=== PATIENT | female | born 1960 | race Caucasian/White ===

== ENCOUNTER 2024-07-11 20:51 | Emergency (ER) | payer MEDICARE ==
[~2024-07-11] VITALS: Ht 162.6 cm; Wt 76.0 kg
[~2024-07-11 20:51] MED LIST: ALLOPURINOL100 MG PO; ALLOPURINOL300 MG PO; ALPRAZOLAM0.5 MG PO; ASPIRIN LOW DOS81 M2 PO; ASPIRIN LOW81 M1 PO; ASPIRIN81 MG PO; BACTRIM DS1 TAB PO; CALCIUM600 M1 PO; CELEBREX200 MG PO; CIPROFLOXACN500 MG PO; CITALOPRAM20 MG PO; CLARITIN10 M1 PO; FLUOXETINE20 MG PO; FUROSEMIDE40 MG PO; GABAPENTIN300 MG PO; GLIPIZIDE5 MG PO; GLUCOMETER; HYDROCODONE/ACE1 TAB PO; LAMICTAL100 M1 PO; LASIX 40 MG TAB40 MG PO; LEVOTHYROXIN100 MC1 PO; LISINOPRIL10 MG PO; LISINOPRIL5 MG PO; LORATADINE10 M1 PO; LORTAB 7.5-3251 TAB PO; LORTAB 7.57.5 MG PO; LUNESTA3 MG PO; MELOXICAM15 MG PO; METFORMIN500 MG PO; METHOCARBAM750 MG PO; MOTRIN800 MG PO; NAPROSYN500 MG PO; NORCO1 TAB PO; PENICILLN VK500 MG PO; PRAVASTATIN SOD40 MG PO; PRAVASTATIN40 MG PO; PROAIR HFA IN; RIZATRIPTAN BENZ5 M1; SUMATRIPTAN SUC50 MG PO; SYNTHROID100 MCG PO; TRAZODONE100 MG PO; TRICOR48 MG PO; ULTRAM50 M1 PO; ULTRAM50 MG PO; VITAMIN E400 UNIT PO
[2024-07-11] MEDS ORDERED: Pantoprazole Sodium 40 MG VIAL (Protonix) IV STA (22:10)
[2024-07-11] MEDS ORDERED: SODIUM CHLORIDE 0.9% 1,000 ML IV STA (22:10)
[2024-07-11] MEDS ORDERED: PROMETHAZINE HCL 25 MG/ML AMP IV ONE (22:15)
[2024-07-11] MEDS ORDERED: ALUM & MAG HYDROX-SIMETHICONE 30 ML PO ONE (22:15)
[2024-07-11] MEDS ORDERED: KETOROLAC TROMETHAMINE 30 MG/ML SDV IV ONE (22:15)
[2024-07-11] MEDS ORDERED: ISOVUE-300 (Iopamidol) 100 ML SDV IV ONE (22:15)
[2024-07-11] MEDS ORDERED: LIDOCAINE VISCOUS 2% 15 ML UDC PO ONE (22:15)
[2024-07-11 22:25] LABS: URINE BLOOD DIPSTICK Small (NEGATIVE); URINE GLUCOSE - DIPSTICK Negative (NEGATIVE); URINE KETONE Trace mg/dL (NEGATIVE); URINE LEUK ESTERASE Negative (NEGATIVE); URINE NITRITE - DIPSTICK Negative (Negative); URINE PH 5.5 (4.5-8.0); URINE PROTEIN - DIPSTICK Trace mg/dL (NEG-TRACE); URINE UROBILINOGEN - DIPSTICK 0.2 E.U./dL (0.2)
[2024-07-11 22:25] LABS: BASO% 0.3 % (0-3); EOS% 0.3 % (0-8); HEMATOCRIT 38.5 % (37.0-47.0); HEMOGLOBIN 12.8 g/dl (12.0-16.0); IMMATURE GRANULOCYTES 0.2 % (0.0-5.0); LYMPH% 26.3 % (15-41); MEAN CORPUSCULAR HGB 30.7 pG CALC (26.0-32.0); MEAN CORPUSCULAR HGB CONC 33.2 g/dL CAL (32.0-36.0); MONO% 7.9 % (2-13); NEUT# 5.63 thou/uL (2.00-7.15); RED BLOOD COUNT 4.17 mill/uL (4.20-5.60); RED CELL DISTRI WIDTH 13.3 % (11.5-15.5)
[2024-07-11 22:26] LABS: MEAN CELL VOLUME 92.3 fL CALC (80.0-100.0)
[2024-07-11 22:28] LABS: URINE COLOR Yellow
[2024-07-11 22:36] LABS: URINE SQUAMOUS EPITHELIAL CELL FEW EPI/hpf (0-FEW)
[2024-07-11 22:38] LABS: ALBUMIN 4.4 g/dL (3.2-5.0); BILIRUBIN, TOTAL 0.4 mg/dL (0.02-1.3); CREATININE 1.1 mg/dL (0.5-1.0); POTASSIUM 3.4 mmol/l (3.5-5.1); TOTAL PROTEIN 7.5 g/dL (6.3-8.2)
[2024-07-11 22:38] LABS: URINE BACTERIA MODERATE hpf; URINE HYALINE CAST FEW lpf (NONE-RARE)
[2024-07-12 01:00] VITALS: BP 137/85
[2024-07-12] MEDS ORDERED: TAMSULOSIN HCL 0.4 MG CAP PO STA (01:02)
[2024-07-12] MEDS ORDERED: TAMSULOSIN0.4 MG PO (01:04)
[2024-07-12] MEDS ORDERED: TRAMADOL HYDROC50 M1 PO (01:04)
[2024-07-12] MEDS ORDERED: Acetaminophen 300 MG/Codeine 30 MG/COMBO PO ONE (01:05)
[2024-07-12 01:20] VITALS: BP 137/85
== END 2024-07-12 01:20 | disposition home or self-care (01) ==
LOC: ED 20:51
PROVIDERS: Family Medicine
DX: N20.1 Calculus of ureter (principal); E03.9 Hypothyroidism, unspecified; K21.9 Gastro-esophageal reflux disease without esophagitis
CPT/HCPCS: J2470; J2550; Q9967